=== PATIENT | female | born 1930 | race Two or more races ===

== ENCOUNTER 2021-06-21 08:13 | Inpatient (IN) | payer OTHER ==
[~2021-06-21] VITALS: Ht 160 cm; Wt 81.6 kg
[2021-06-21] MEDS ORDERED: ELIQUIS2.5 MG (08:26)
[2021-06-23] MEDS ORDERED: ELIQUIS2.5 MG PO (18:24)
[2021-06-23] MEDS ORDERED: ATACAND32 MG PO (18:25)
[2021-06-23] MEDS ORDERED: INTESTINEX680 M1 PO (18:25)
[2021-06-23] MEDS ORDERED: NORVASC10 MG PO (18:25)
[2021-06-23] MEDS ORDERED: QUESTRAN LIGHT210 GM PO (18:27)
[2021-06-23] MEDS ORDERED: HYDRODIURIL12.5 MG PO (18:28)
[2021-06-29] MEDS ORDERED: ULTRACET PO (09:45)
[2021-06-29] MEDS ORDERED: ELIQUIS2.5 MG PO (09:45)
== END 2021-06-29 13:47 | DRG 522 ==
LOC: ER 08:13 → SEC-K 19:47 → SURH 19:47
PROVIDERS: ADMIT Orthopaedic Surgery; ATTEND Orthopaedic Surgery
PROC: B246ZZZ Ultrasonography of Right and Left Heart (ICD-10-PCS; 2021-06-21)
PROC: 4A12X4Z Monitoring of Cardiac Electrical Activity, External Approach (ICD-10-PCS; 2021-06-22)
PROC: 0QS704Z Reposition Left Upper Femur with Internal Fixation Device, Open Approach (ICD-10-PCS; 2021-06-25)
PROC: 0QU70JZ Supplement Left Upper Femur with Synthetic Substitute, Open Approach (ICD-10-PCS; 2021-06-25)
PROC: 0SRS0JZ Replacement of Left Hip Joint, Femoral Surface with Synthetic Substitute, Open Approach (ICD-10-PCS; principal; 2021-06-25 07:00)
DX: S72.112A Displaced fracture of greater trochanter of left femur, initial encounter for closed fracture (principal); D62 Acute posthemorrhagic anemia; I48.20 Chronic atrial fibrillation, unspecified; S72.092A Other fracture of head and neck of left femur, initial encounter for closed fracture; W22.8XXA Striking against or struck by other objects, initial encounter; Y93.89 Activity, other specified; Y92.098 Other place in other non-institutional residence as the place of occurrence of the external cause; Y99.8 Other external cause status; I45.19 Other right bundle-branch block; Z20.822 Contact with and (suspected) exposure to COVID-19; Z79.01 Long term (current) use of anticoagulants; I11.9 Hypertensive heart disease without heart failure